=== PATIENT | female | born 1995 | race Two or more races ===

== ENCOUNTER 2021-08-15 18:04 | Emergency (ER) | payer OTHER ==
[2021-08-15 18:37] LABS: BILIRUBIN,URINE NEGATIVE (NEGATIVE); GLUCOSE, URINE (UA) NEGATIVE (NEGATIVE); KETONES,URINE (UA) NEGATIVE (NEGATIVE); LEUKOCYTE ESTERASE, URINE NEGATIVE (NEGATIVE); NITRITE,URINE NEGATIVE (NEGATIVE); OCCULT BLOOD,URINE SMALL (NEGATIVE); PROTEIN,URINE NEGATIVE (NEGATIVE); UROBILINOGEN,URINE 0.2 (NORMAL) E.U./dL (NORMAL)
[2021-08-15 18:40] LABS: CLARITY,URINE CLEAR (CLEAR)
[2021-08-15 18:43] LABS: BASOPHILS # (AUTO) 0.1 10^3/uL (0.0-0.1); BASOPHILS % (AUTO) 0.7 %; EOSINOPHILS # (AUTO) 0.3 10^3/uL (0.0-0.7); EOSINOPHILS % (AUTO) 2.5 %; HCT - HEMATOCRIT 41.7 % (37.0-47.0); HGB - HEMOGLOBIN 13.9 g/dL (12.0-16.0); LYMPHOCYTES # (AUTO) 3.5 10^3/uL (1.5-3.5); MEAN CORPUSCULAR HGB CONC 33.3 g/dL (32.0-36.0); MEAN CORPUSCULAR VOLUME 89.9 fL (81.0-99.0); MEAN PLATELET VOLUME 9.7 fL (7.9-10.8); MONOCYTES # (AUTO) 0.6 10^3/uL (0.0-1.0); MONOCYTES % (AUTO) 5.5 %; NEUTROPHILS # (AUTO) 6.6 10^3/uL (1.5-6.6); NEUTROPHILS % (AUTO) 59.2 %; PLT - PLATELET COUNT 305 10^3/uL (130-450); RED BLOOD COUNT 4.64 10^6/uL (4.20-5.40); RED CELL DISTRIBUTION WIDTH 12.7 % (12.0-15.0); WHITE BLOOD COUNT 11.2 x10^3/uL (4.8-10.8)
[2021-08-15 18:45] LABS: BACTERIA,URINE Few /HPF (None Seen); RBC,URINE 0-5 /HPF (0-5); SQUAMOUS EPITHELIAL CELL,UR RARE Squamous (<= Few); WBC,URINE 0-3 /HPF (0-5)
[2021-08-15 19:01] LABS: CALCIUM 9.2 mg/dL (8.5-10.3); CREATININE 0.6 mg/dL (0.4-1.0); POTASSIUM 3.4 mmol/L (3.5-5.0)
--- NOTE | 2021-08-15 19:38 | Ultrasound Report ---
PROCEDURE: OB First Trimester w/TV INDICATIONS: 6 weeks cramping and bleeding OUTSIDE/PRIOR DATING DATA: Last menstrual period (LMP): 07/02/2019 to. LMP-based estimated date of delivery (HEAVEN): 04/07/2022. First dating scan (date and location): 08/15/2021. Estimated date of delivery (HEAVEN) from first dating scan: Not applicable. TECHNIQUE: Real-time scanning was performed of the fetus and maternal pelvic organs, with image documentation. Endovaginal scanning was also performed to better visualize the fetus and maternal ovaries. COMPARISON: None FINDINGS No intrauterine gestational sac is seen. 3 mm cystic area within endometrium is seen. Endometrium jaycee sures 10.1 mm in thickness and is within normal limits. Possible corpus luteum is seen in right ovary measures 1.8 x 1.4 x 1.6 cm in size. There is also a 1. 8 x 1.4 x 1.4 cm cystic structure seen adjacent to right ovary and may represent paraovarian cyst. No internal vascularity is seen IMPRESSION: 1. No evidence of intrauterine gestation. Tiny cystic area within endometrium which may represent a s mall endometrial cyst. No endometrial mass is seen. Please correlate with serial beta hCG levels for evaluation of viability. 2. Possible corpus luteum in right ovary as above. 1.8 x 1.4 x 1.4 cm possible right paraovarian cyst is seen. No solid appearing ovarian lesion. No definite ectopic gestational sac is seen. Clinical co rrelation and sonographic follow-up is recommended. Reviewed by: Cholo Rowe MD on 08/15/2021 7:37 PM PDT Approved by: Cholo Rowe MD on 08/15/2021 7:37 PM PDT Station ID: [id number]
[2021-08-15 20:19] VITALS: BP 122/88
--- NOTE | 2021-08-15 20:19 | ED Physician Documentation ---
History of Present Illness - Stated complaint Stated Complaint: CRAMPING +PREG - Chief complaint Chief Complaint: Abd Pain - Additonal information Additional information: 25-year-old female presents emergency department for evaluation of lower pelvic cramping and spotting in the first trimester . LMP 07/01/2021. G3, . Rh+ Patient reports that about a week ago she began having some pelvic cramping which she attributed to round ligament pain. However she began having some vaginal spotting yesterday. 9 she did have hormone levels obtained at [facility] to date her and they were as high as 108 on 05 August. Today they are 77. Review of Systems Constitutional: denies: Fever, Chills Throat: reports: Reviewed and negative Cardiac: reports: Reviewed and negative Respiratory: reports: Reviewed and negative GI: reports: Abdominal Pain : reports: Reviewed and negative Skin: reports: Reviewed and negative Musculoskeletal: reports: Reviewed and negative PD PAST MEDICAL HISTORY - Present Medications Home Medications: Ambulatory Orders Medication Instructions Recorded Confirmed No Known Home Medications 08/15/21 08/15/21 - Allergies Allergies/Adverse Reactions: Allergies Allergy/AdvReac Type Severity Reaction Status Date / Time ceftriaxone [From Rocephin] Allergy Hives Verified 08/15/21 18:10 sumatriptan Allergy Anaphylaxis Verified 08/15/21 18:10 PD ED PE NORMAL - General General: Alert and oriented X 3, No acute distress, Well developed/nourished - HEENT HEENT: Atraumatic, Moist mucous membranes - Neck Neck: Supple, no meningeal sign, No adenopathy, No JVD - Cardiac Cardiac: RRR, No murmur - Respiratory Respiratory: No respiratory distress - Abdomen Abdomen: Normal bowel sounds, Soft - Derm Derm: Normal color, Warm and dry, No rash - Neuro Neuro: Alert and oriented X 3 Eye Opening: Spontaneous Motor: Obeys Commands Verbal: Oriented GCS Score: 15 Results - Vitals Vitals: Vital Signs - 24 hr 08/15/21 08/15/21 18:06 18:10 Temperature 36.5 C 36.5 C Heart Rate 82 82 Respiratory 14 14 Rate Blood Pressure 116/59 L 116/59 L O2 Saturation 100 100 Oxygen O2 Source Room air - Labs Labs: Laboratory Tests 08/15/21 08/15/21 08/15/21 18:26 18:35 18:35 WBC 11.2 H RBC 4.64 Hgb 13.9 Hct 41.7 MCV 89.9 MCH 30.0 MCHC 33.3 RDW 12.7 Plt Count 305 MPV 9.7 Neut # (Auto) 6.6 Lymph # (Auto) 3.5 Banks # (Auto) 0.6 Eos # (Auto) 0.3 Baso # (Auto) 0.1 Absolute Nucleated RBC 0.00 Nucleated RBC % 0.0 Sodium Potassium Chloride Carbon Dioxide Anion Gap BUN Creatinine Estimated GFR (MDRD) Glucose Calcium HCG, Quant Urine Color YELLOW Urine Clarity CLEAR Urine pH 6.0 Ur Specific Sharon 1.010 Urine Protein NEGATIVE Urine Glucose (UA) NEGATIVE Urine Ketones NEGATIVE Urine Occult Blood SMALL H Urine Nitrite NEGATIVE Urine Bilirubin NEGATIVE Urine Urobilinogen 0.2 (NORMAL) Ur Leukocyte Esterase NEGATIVE Urine RBC 0-5 Urine WBC 0-3 Ur Squamous Epith Cells RARE Squamous Urine Bacteria Few Ur Microscopic Review INDICATED Urine Culture Comments NOT INDICATED Blood Type A POSITIVE 08/15/21 08/15/21 18:35 18:35 WBC RBC Hgb Hct MCV MCH MCHC RDW Plt Count MPV Neut # (Auto) Lymph # (Auto) Banks # (Auto) Eos # (Auto) Baso # (Auto) Absolute Nucleated RBC Nucleated RBC % Sodium 137 Potassium 3.4 L Chloride 101 Carbon Dioxide 27 Anion Gap 9.0 BUN 13 Creatinine 0.6 Estimated GFR (MDRD) 121 Glucose 106 H Calcium 9.2 HCG, Quant 77.22 Urine Color Urine Clarity Urine pH Ur Specific Sharon Urine Protein Urine Glucose (UA) Urine Ketones Urine Occult Blood Urine Nitrite Urine Bilirubin Urine Urobilinogen Ur Leukocyte Esterase Urine RBC Urine WBC Ur Squamous Epith Cells Urine Bacteria Ur Microscopic Review Urine Culture Comments Blood Type - Rads (name of study) pelvic US Radiology: Final report received (No evidence of intrauterine gestation. Tiny cystic area within the endometrium which may represent a small endometrial cyst. No endometrial mass seen. Possible corpus luteal cyst of the right ovary 1.8 cm versus paraovarian cyst. No definite ectopic gestational sac is seen.) PD MEDICAL DECISION MAKING - ED course Complexity details: reviewed results, re-evaluated patient, considered differential, d/w patient ED course: 25-year-old female who is Rh+ presents emergency department for evaluation of cramping and spotting in the first trimester . She reported a hormone level of [address] [facility] on 05 August. Today it is 77. Screening labs are otherwise unremarkable. Ultrasound did not reveal an IUP but she does have 2 ovarian cysts 1 likely paraovarian and the other likely corpus luteal. However an ectopic is not ruled out. However the patient has a benign abdominal exam with no tenderness elicited. I did discuss this case with Dr. Peters OB on-call. She does not feel the patient would benefit from repeat ultrasound in 48 to 72 hours but would like her hormone levels redrawn on Wednesday. The OB department will follow up on the hCG results. I have given the patient a signed outpatient lab requisition form. We also discussed emergent return precautions for heavy vaginal bleeding or severe different pelvic pain Departure - Departure Disposition: Home, Self Care Clinical Impression: Miscarriage Condition: Stable Record reviewed to determine appropriate education?: Yes Comments: Krystal molina were seen today in the emergency department for cramping and spotting in the first trimester . You reported to me that on 05 August you had a hormone hCG level of 108. Today in the emergency department your hormone level is 77. Unfortunately this is consistent with a miscarriage in early . The ultrasound today does not show findings of an intrauterine . You do have some cysts on your right ovary. Its not likely that this is an ectopic but that is not fully ruled out. I did discuss your case with our on-call OB Dr. Peters. She would like you to have your hormone levels rechecked on Wednesday. Our OB department will follow up on the results. If over the weekend you have any development of sudden severe lower pelvic pain, feel faint, lightheaded have fainting episodes, or you begin to bleed heavily such as saturating 2-4 pads an hour or bleed heavily for 1 to 2 hours then you should return to the ER for a second evaluation
== END 2021-08-15 20:42 | disposition home or self-care (01) ==
LOC: ED 18:04
DX: O03.9 Complete or unspecified spontaneous abortion without complication (principal)
CPT/HCPCS: 36415; 80048; 81001; 81003; 84702; 85025; 86900; 86901; 87086; 99284

== ENCOUNTER 2021-08-19 14:47 | Outpatient (CLI) | payer OTHER | END 2021-08-19 14:48 | disposition home or self-care (01) | LOC: LAB.N 14:47 | PROVIDERS: ATTEND Registered Nurse | DX: O03.4 Incomplete spontaneous abortion without complication (principal) | CPT/HCPCS: 36415; 84702 ==